=== PATIENT | female | born 1975 | race Caucasian/White ===

== ENCOUNTER 2017-04-13 10:41 | Emergency (ER) | payer OTHER ==
[2017-04-13 11:17] LABS: BASO % 0.5 % (0.1-1.2); EOS # 0.2 10_X3_uL (0.0-0.4); EOS % 3.6 % (0.7-5.8); GRAN # 3.1 10_X3_uL (1.6-6.1); GRAN % 55.8 % (34.0-71.1); HEMATOCRIT 38.7 % (34-45); LYMPH # 1.6 10_X3_uL (1.2-3.7); LYMPH % 29.7 % (19.3-51.7); MEAN CORPUSCULAR HEMOGLOBIN 30.3 pg (27.0-33.0); MEAN CORPUSCULAR HGB CONC 33.6 g/dL (32.0-36.0); MEAN CORPUSCULAR VOLUME 90.2 fL (79-95); MEAN PLATELET VOLUME 9.7 fl (7.5-11.5); MONO # 0.6 10_X3_uL (0.2-0.9); MONO % 10.4 % (4.7-12.5); PLATELET COUNT 289 x10_3/uL (182-369); RED BLOOD COUNT 4.29 x10_6/uL (3.9-5.2); WHITE BLOOD COUNT 5.5 x10_3/uL (4.0-10.0)
[2017-04-13 11:37] LABS: ALBUMIN 3.9 gm/dL (3.4-5.0); ALKALINE PHOSPHATASE 57 U/L (50-136); ALT/SGPT 17 U/L (3.5-33.9); AMYLASE 23 U/L (15.62-74.58); AST/SGOT 16 U/L (7.04-26.96); BILIRUBIN,TOTAL 0.32 mg/dL (0.0-1.0); BLOOD UREA NITROGEN 16 mg/dL (7-18); CALCIUM 9.1 mg/dL (8.7-10.7); CARBON DIOXIDE 23 mmol/L (21-32); CREATININE 0.6 mg/dL (0.6-1.3); GLUCOSE,RANDOM 104 mg/dL (70-99); LIPASE 23 U/L (6.75-60.75); POTASSIUM 4.2 mmol/L (3.5-5.1); SODIUM 137 mmol/L (136-145); TOTAL PROTEIN 6.8 gm/dL (6.4-8.2)
== END 2017-04-13 13:21 | disposition home or self-care (01) ==
LOC: ER 10:41
PROVIDERS: General Practice
DX: D35.00 Benign neoplasm of unspecified adrenal gland (principal); K76.89 Other specified diseases of liver; K80.70 Calculus of gallbladder and bile duct without cholecystitis without obstruction; R10.11 Right upper quadrant pain; R11.2 Nausea with vomiting, unspecified; N83.209 Unspecified ovarian cyst, unspecified side; R63.0 Anorexia; Z88.0 Allergy status to penicillin; Z88.2 Allergy status to sulfonamides; Z88.1 Allergy status to other antibiotic agents; Z79.899 Other long term (current) drug therapy; Z79.1 Long term (current) use of non-steroidal anti-inflammatories (NSAID)
CPT/HCPCS: 36415; 80053; 82150; 83690; 85025; 96374; 96375; 99070; 99284; 99284-25; J7040; Q9967